=== PATIENT | male | born 1995 | race Caucasian/White ===

== ENCOUNTER 2016-09-02 11:03 | Emergency (ER) | payer SELFPAY ==
--- NOTE | 2016-09-02 11:34 | RAD ---
RIGHT HAND 3 VIEWS: Date: 09/02/16 HISTORY: 21-year-old male with right hand pain following an injury, with associated swelling. FINDINGS: There is some swelling over the dorsal aspect of the hand. No evidence for acute fracture or disloca tion. IMPRESSION: Soft tissue swelling without fracture or dislocation. POS: [facility]
== END 2016-09-02 11:49 | disposition home or self-care (01) ==
LOC: BURERS 11:03
DX: S60.221A Contusion of right hand, initial encounter (principal); S50.311A Abrasion of right elbow, initial encounter; S60.511A Abrasion of right hand, initial encounter; S60.811A Abrasion of right wrist, initial encounter; F17.210 Nicotine dependence, cigarettes, uncomplicated; W22.8XXA Striking against or struck by other objects, initial encounter; Y92.69 Other specified industrial and construction area as the place of occurrence of the external cause; Y99.0 Civilian activity done for income or pay